=== PATIENT | male | born 1985 | race Caucasian/White ===

== ENCOUNTER → 2019-12-01 | Outpatient (CLI) | payer OTHER ==
--- NOTE | 2019-12-02 19:34 | SLEEP ---
[address] [address] SLEEP STUDY REPORT Name: AN HIRSCH Room: [facility]#: [id number] Admission: 12/01/19 Attend Phys: Edwardo Martinez MD Discharge: Date of : 87 Report #: [id number] THIS REPORT FOR: //name// CC: Edwardo Westbrook This study has been reviewed in its entirety by a board certified sleep specialist DATE OF SERVICE: 12/01/2019 SLEEP STUDY REFERRING PHYSICIAN: Edwardo Martinez MD The patient is a 34-year-old who weighs 200 pounds with a BMI of 33. The patient's Saint Joseph score was 18. The patient underwent diagnostic sleep study performed at [facility]. During the night study, the patient spent 445 minutes in bed and slept for 358 minutes with a sleep efficiency of 80%. Sleep latency was 36 minutes with a REM latency of 72 minutes. Sleep architecture showed normal stage 1 sleep, increased stage 2 sleep, normal slow wave and slightly reduced REM sleep, which was 16% of total sleep time. During the night study, the patient had no apneas. The patient had 9 hypopneas. The patient's apnea hypopnea index was only 1.5 per hour with a REM index of 3.2 per hour and a supine index of 1.8 per hour. Spontaneous arousal seen but no definite seizure activity seen. EKG monitoring revealed an average heart rate of 68 beats per minute. No sustained arrhythmias observed. No clinically significant PLM seen. Nocturnal oximetry study revealed an average oxygen saturation of 94% with the lowest of 85%. Only 20 seconds were spent in oxygen saturation less than 89%. The patient did not meet the split night criteria for CPAP initiation. IMPRESSION: 1. No clinically significant sleep disorder breathing. The patient's AHI for the entire night was 1.5 per hour. 2. No clinically significant nocturnal hypoxia. 3. No clinically [place] [address] SLEEP STUDY REPORT Name: AN HIRSCH Room: [facility]#: [id number] Admission: 12/01/19 Attend Phys: Edwardo Martinez MD Discharge: Date of : 87 Report #: [id number] RECOMMENDATIONS: 1. The patient did not meet the criteria for CPAP initiation due to very low AHI. 2. The patient has severe subjective hypersomnia with an Saint Joseph score of 18. If clinical suspicion for other disorders such as narcolepsy or idiopathic hypersomnia is high, then consider doing multiple sleep latency tests. 3. Avoid [employer] depressants. 4. Caution regarding driving until the patient's hypersomnia is resolved. <ELECTRONICALLY SIGNED> By: Ricardo Santiago MD 12/02/19 1934 [id number] Oriana Santiago MD /tg
== END ==
LOC: M.SLEEPLAB 20:00
DX: G47.33 Obstructive sleep apnea (adult) (pediatric) (principal)